=== PATIENT | male | born 1985 | race Caucasian/White ===

== ENCOUNTER 2024-09-07 07:58 | Day surgery (SDC) | payer OTHER ==
[~2024-09-07 07:58] MED LIST: Sodium Chloride 0.9% 10 ML Syringe FLUSH PRN
[2024-09-07] MEDS ORDERED: Lidocaine 2% 100 MG/5 ML Syringe IVPUSH ONE (07:59)
[2024-09-07] MEDS ORDERED: Propofol 200 MG/20 ML SDV IV ONE (07:59)
[2024-09-07] MEDS ORDERED: Midazolam 1 MG/ML 2 ML SDV IV ONE (07:59)
[2024-09-07] MEDS ORDERED: Ketamine 500 mg/10 ML MDV IV ONE (07:59)
[2024-09-07] MEDS: Lactated Ringers 1,000 ML IV SCH (08:42)
[2024-09-07] MEDS: Simethicone Drops 40 MG/0.6 ML 30 ML Bottle ONE (09:25)
== END 2024-09-07 11:05 | disposition home or self-care (01) ==
LOC: FB.SDS 07:58
PROVIDERS: ATTEND Surgery
DX: K60.30 Anal fistula, unspecified (principal); K62.5 Hemorrhage of anus and rectum; R19.5 Other fecal abnormalities
CPT/HCPCS: 00811; 93005; A9270-GY; J2250; J2704; J3490; J7120

== ENCOUNTER 2024-10-05 06:23 | Day surgery (SDC) | payer OTHER ==
[2024-10-05] MEDS ORDERED: Phenylephrine 0.5% Nasal Spray 15 ML Bot NAS ONE (06:24)
[2024-10-05] MEDS ORDERED: Ketorolac 30 MG/ML SDV IVPUSH ONE (06:24)
[2024-10-05] MEDS ORDERED: Midazolam 1 MG/ML 2 ML SDV IV ONE (06:24)
[2024-10-05] MEDS ORDERED: Propofol 200 MG/20 ML SDV IV ONE (06:24)
[2024-10-05] MEDS ORDERED: Ondansetron 4 MG/2 ML SDV IVPUSH ONE (06:24)
[2024-10-05] MEDS ORDERED: fentaNYL 100 MCG/2 ML SDV IV ONE (06:24)
[2024-10-05] MEDS ORDERED: Lidocaine 2% 100 MG/5 ML Syringe IVPUSH ONE (06:24)
[2024-10-05] MEDS ORDERED: Ketamine 500 mg/10 ML MDV IV ONE (06:24)
[2024-10-05] MEDS: Sodium Phosphate,Monobasic/Sodium Phosphate,Dibasic Enema 133 ML Bottle RECTAL ONE (07:33)
[2024-10-05] MEDS: Lactated Ringers 1,000 ML IV SCH (07:34)
[2024-10-05] MEDS: ceFAZolin 2 GM Vial ONE (07:35)
[2024-10-05] MEDS: ceFAZolin 2 GM Vial IVPUSH ONE (07:36)
[2024-10-05] MEDS: Lidocaine 1% with EPINEPHrine 1:100,000 20 ML MDV INJECT ONE (08:06)
[2024-10-05] MEDS: Bupivacaine 0.5% 50 ML MDV INJECT ONE (08:06)
== END 2024-10-05 09:53 | disposition home or self-care (01) ==
LOC: FB.SDS 06:23
PROVIDERS: ATTEND Surgery
DX: K60.5 Anorectal fistula (principal)
CPT/HCPCS: A9270-GY; J0665; J0690; J1885; J2004; J2250; J2405; J2704; J3010; J3490; J7120